=== PATIENT | female | born 1950 | race Two or more races ===

== ENCOUNTER 2018-12-18 07:22 | Outpatient (CLI) | payer OTHER | END 2018-12-18 07:26 | disposition home or self-care (01) | LOC: TOM 07:22 | DX: C50.812 Malignant neoplasm of overlapping sites of left female breast (principal); C77.3 Secondary and unspecified malignant neoplasm of axilla and upper limb lymph nodes | CPT/HCPCS: 71270; 74178; Q9965 ==

== ENCOUNTER 2018-12-19 14:50 | Outpatient (CLI) | payer OTHER | END 2018-12-19 15:06 | disposition home or self-care (01) | LOC: RAD 14:50 | DX: C50.212 Malignant neoplasm of upper-inner quadrant of left female breast (principal); C77.3 Secondary and unspecified malignant neoplasm of axilla and upper limb lymph nodes ==

== ENCOUNTER → 2018-12-19 15:30 | Outpatient (CLI) | payer OTHER | END | disposition home or self-care (01) | LOC: LAB 15:30 | DX: I10 Essential (primary) hypertension (principal) ==

== ENCOUNTER → 2018-12-21 | Outpatient (CLI) | payer OTHER | END | disposition home or self-care (01) | LOC: NUCLEAR 09:00 | DX: C50.812 Malignant neoplasm of overlapping sites of left female breast (principal); C77.3 Secondary and unspecified malignant neoplasm of axilla and upper limb lymph nodes | CPT/HCPCS: 78315; A9503 ==

== ENCOUNTER → 2018-12-25 | Outpatient (CLI) | payer OTHER | END | disposition home or self-care (01) | LOC: NUCLEAR 14:03 | DX: I42.7 Cardiomyopathy due to drug and external agent (principal); C50.212 Malignant neoplasm of upper-inner quadrant of left female breast; C50.412 Malignant neoplasm of upper-outer quadrant of left female breast; C77.3 Secondary and unspecified malignant neoplasm of axilla and upper limb lymph nodes | CPT/HCPCS: 78472; 78496; A9560 ==

== ENCOUNTER 2019-01-23 13:05 | Inpatient (IN) | payer OTHER ==
[~2019-01-23] VITALS: Ht 149.9 cm; Wt 60.8 kg
[2019-01-23] MEDS ORDERED: DEXAMETHASONE4 MG PO (13:40)
[2019-01-23] MEDS ORDERED: IBRANCE125 MG (13:41)
[2019-01-23] MEDS ORDERED: ZANTAC300 MG (13:41)
[2019-01-23] MEDS ORDERED: OMEPRAZOLE20 M1 (13:41)
--- NOTE | 2019-01-23 13:43 | NUR ---
SE RECIBE AL PACIENTE ORIENTADO Y ALERTA EN DAVID KARINE ESFERAS. PACIENTE REFIERE QUE VIENE POR QUE SUFRIO DANE CAIDA EN PINO HOGAR EN EL GIORGIO DE RICARDO EN LA NOCHE. FAMILIAR DEL PACIENTE REFIERE QUE EL PACIENTE SUFRE DEMENSIA. LA PACIENTE ESTA SALIVANDO CONSTANTEMENTE. SE LE REALIZA UN EKG.
--- NOTE | 2019-01-23 15:21 | NUR ---
BAJO MEDIDAS ASEPTICAS AL PACIENTE SE LE CANALIZA Y SE LE KEYUR MUSTRAS DE RAIN PARA REALIZAR LABORATORIOS. ROSA ORDEN MEDICA SE LE REALIZA RAPID TEST Y SE LE ADMINSITRA IVF 0.9% NACL. PACIENTE SE MANTIENE BAJO OBSERVACION PARA CAMBIOS SIGNIFICATIVOS.
== END 2019-01-31 13:01 | disposition expired | DRG 871 ==
LOC: ER 13:05 → SEC-K 18:47 → MEDJ 01-24 13:21
PROVIDERS: ADMIT Internal Medicine Cardiovascular Disease
PROC: BW28ZZZ Computerized Tomography (CT Scan) of Head (ICD-10-PCS; principal; 2019-01-23)
PROC: 8E0ZXY6 Isolation (ICD-10-PCS; 2019-01-23)
PROC: BB24ZZZ Computerized Tomography (CT Scan) of Bilateral Lungs (ICD-10-PCS; 2019-01-25)
PROC: B246ZZZ Ultrasonography of Right and Left Heart (ICD-10-PCS; 2019-01-28)
PROC: 02HV33Z Insertion of Infusion Device into Superior Vena Cava, Percutaneous Approach (ICD-10-PCS; 2019-01-28)
PROC: 3E0F7GC Introduction of Other Therapeutic Substance into Respiratory Tract, Via Natural or Artificial Opening (ICD-10-PCS; 2019-01-28)
PROC: 4A033R1 Measurement of Arterial Saturation, Peripheral, Percutaneous Approach (ICD-10-PCS; 2019-01-28)
PROC: 5A09457 Assistance with Respiratory Ventilation, 24-96 Consecutive Hours, Continuous Positive Airway Pressure (ICD-10-PCS; 2019-01-28)
DX: A41.9 Sepsis, unspecified organism (principal); J69.0 Pneumonitis due to inhalation of food and vomit; J96.01 Acute respiratory failure with hypoxia; C78.7 Secondary malignant neoplasm of liver and intrahepatic bile duct; C79.51 Secondary malignant neoplasm of bone; J90 Pleural effusion, not elsewhere classified; T17.898A Other foreign object in other parts of respiratory tract causing other injury, initial encounter; C50.812 Malignant neoplasm of overlapping sites of left female breast; L59.8 Other specified disorders of the skin and subcutaneous tissue related to radiation; E86.0 Dehydration; D70.8 Other neutropenia; R50.81 Fever presenting with conditions classified elsewhere; E87.8 Other disorders of electrolyte and fluid balance, not elsewhere classified; Z17.0 Estrogen receptor positive status [ER+]; B96.89 Other specified bacterial agents as the cause of diseases classified elsewhere; B96.1 Klebsiella pneumoniae [K. pneumoniae] as the cause of diseases classified elsewhere; B96.4 Proteus (mirabilis) (morganii) as the cause of diseases classified elsewhere; R31.0 Gross hematuria; Z66 Do not resuscitate; B95.1 Streptococcus, group B, as the cause of diseases classified elsewhere; B96.6 Bacteroides fragilis [B. fragilis] as the cause of diseases classified elsewhere